=== PATIENT | male | born 1985 | race Caucasian/White ===

== ENCOUNTER 2016-10-07 21:54 | Emergency (ER) | payer BC, OTHER ==
[2016-10-07 22:07] VITALS: BP 143/80; PULSE 106; TEMP 98; BMI 37.9
[2016-10-07] MEDS ORDERED: SODIUM CHLORIDE 0.9% 1000 ML INFUS.BAG IV ONE (22:42)
[2016-10-07] MEDS ORDERED: ONDANSETRON 4 MG/2 ML VIAL IVPUSH ONE (22:42)
[2016-10-07] MEDS ORDERED: ONDANSETRON 4 MG/2 ML VIAL ONE (23:03)
[2016-10-07 23:34] LABS: BASOPHIL 0.5 % (0-2.0); EOSINOPHIL 0.5 % (0-4.5); MCH 28.7 pg (25.7-33.7); MCHC 33.9 g/dl (32.0-35.9); MEAN CELL VOLUME 84.8 fl (80-96); MEAN PLT VOLUME 7.7 fl (7.5-11.1); NEUTROPHILS 84.8 % (42.8-82.8); PLATELET COUNT 332 K/MM3 (134-434); RDW 12.7 % (11.9-15.9); WHITE BLOOD COUNT 12.9 K/mm3 (4.0-10.0)
[2016-10-08 00:12] LABS: ALBUMIN 4.7 g/dl (3.4-5.0); ANION GAP 11 (8-16); BILIRUBIN,TOTAL 0.6 mg/dL (0.2-1.0); CALCIUM 9.8 mg/dL (8.5-10.1); CO2 26 mmol/L (21-32); CREATININE 1.1 mg/dL (0.7-1.3); GLUCOSE,RANDOM 114 mg/dL (74-106); SGOT/AST 25 U/L (15-37); SGPT/ALT 40 U/L (12-78); TOT PROT 7.6 g/dl (6.4-8.2)
[2016-10-08 00:13] LABS: ALK PHOS 60 U/L (45-117)
--- NOTE | 2016-10-08 00:37 | PDOC ---
History of Present Illness - General Chief Complaint: Nausea/Vomiting Stated Complaint: VOMITING Time Seen by Provider: 10/07/16 22:20 - History of Present Illness Initial Comments: 10/09/16 03:38 CHIEF COMPLAINT: nausea, vomiting, diarrhea HISTORY OF PRESENT ILLNESS: 31 yo M with no PMH presents to ED with nausea/ vomiting/diarrhea since 4 pm today. He states that he has had at least 6 episodes of vomiting and 4 episodes of diarrhea. He states his pain is mostly to his right upper quadrant "but it might be from all the vomiting. " He denies any fever, chills, rectal bleeding. No recent travel or sick contacts. PAST MEDICAL HISTORY: Denies past medical history FAMILY HISTORY: Denies SOCIAL HISTORY: Denies tobacco, alcohol, illicit drug use. SURGICAL HISTORY: Denies ALLERGIES: No known drug allergies REVIEW OF SYSTEMS General/Constitutional: Denies fever or chills. Denies weakness, weight change. HEENT: Denies change in vision. Denies ear pain or discharge. Denies sore throat. Cardiovascular: Denies chest pain or shortness of breath. Respiratory: Denies cough, wheezing, or hemoptysis. Gastrointestinal: Nausea, vomiting, diarrhea. Denies rectal bleeding. Genitourinary: Denies dysuria, frequency, or change in urination. Musculoskeletal: Denies joint or muscle swelling or pain. Denies neck or back pain. Skin and breasts: Denies rash or easy bruising. Neurologic: Denies headache, vertigo, loss of consciousness, or loss of sensation. PHYSICAL EXAM General Appearance: Well-appearing, appropriately dressed. No apparent distress. HEENT: EOMI, PERRLA, normal ENT inspection, normal voice, TMs normal, pharynx normal. No conjunctival pallor. No photophobia, scleral icterus. Respiratory/Chest: Lungs CTAB. Cardiovascular: RRR. S1, S2. Gastrointestinal/Abdominal: RUQ tenderness. Negative McBurney's sign. Normal bowel sounds. Abdomen soft, non-distended. No tenderness or rebound tenderness. No organomegaly, pulsatile mass, guarding, hernia, hepatomegaly, splenomegaly. Lymphatic: No adenopathy, tenderness. Integumentary: Appropriate color, dry, warm. 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 Fully oriented, alert. Appropriate mood/affect. Motor strength 5/5. No appreciable EOM palsy, facial droop or sensory deficit. Past History - Past Medical History Allergies/Adverse Reactions: Allergies Allergy/AdvReac Type Severity Reaction Status Date / Time No Known Allergies Allergy Verified 10/07/16 22:04 Home Medications: Ambulatory Orders Ondansetron [Zofran Odt -] 8 mg SL TID PRN #21 od.tablet 10/08/16 Anemia: No Asthma: No Cancer: No Cardiac Disorders: No CVA: No COPD: No CHF: No Dementia: No Diabetes: No GI Disorders: No Disorders: No HTN: No Hypercholesterolemia: No Liver Disease: No Seizures: No Thyroid Disease: No - Surgical History Cardiac Surgery: No Neurologic Surgery: No - Immunization History TDAP Vaccination: Yes Immunization Up to Date: Yes - Psycho/Social/Smoking Cessation Hx Anxiety: No Suicidal Ideation: No Smoking Status: No Smoking History: Never smoked Have you smoked in the past 12 months: No Number of Cigarettes Smoked Daily: 0 Information on smoking cessation initiated: No Hx Alcohol Use: No Drug/Substance Use Hx: No Substance Use Type: None Hx Substance Use Treatment: No *Physical Exam - Vital Signs Last Vital Signs Temp Pulse Resp BP Pulse Ox 98.0 F 106 H 14 143/80 96 10/07/16 22:05 10/07/16 22:05 10/07/16 22:05 10/07/16 22:05 10/07/16 22:05 ED Treatment Course - LABORATORY CBC & Chemistry Diagram: 10/07/16 23:30 10/07/16 23:30 - ADDITIONAL ORDERS Additional order review: Laboratory Results 10/07/16 23:30 Sodium 140 Potassium 5.0 Chloride 103 Carbon Dioxide 26 Anion Gap 11 BUN 27 H D Creatinine 1.1 Creat Clearance w eGFR > 60 Random Glucose 114 H Calcium 9.8 Total Bilirubin 0.6 D AST 25 D ALT 40 D Alkaline Phosphatase 60 Total Protein 7.6 D Albumin 4.7 D Lipase 123 10/07/16 23:30 RBC 5.26 MCV 84.8 MCHC 33.9 RDW 12.7 MPV 7.7 D Neutrophils % 84.8 H Lymphocytes % 7.9 L D Monocytes % 6.3 Eosinophils % 0.5 Basophils % 0.5 - RADIOLOGY Radiology Studies Ordered: Category Date Time Status GALLBLADDER US [US] Stat Ultrasound 10/07/16 22:38 Completed - Medications Given in the ED: ED Medications Discontinued Medications Generic Name Dose Route Start Last Admin Trade Name Mandeep PRN Reason Stop Dose Admin Ondansetron HCl 8 mg 10/07/16 22:42 10/07/16 23:30 Zofran Injection IVPUSH 10/07/16 22:43 8 mg ONCE ONE Administration Sodium Chloride 1,000 ml 10/07/16 22:42 10/07/16 23:29 Normal Saline - IV 10/07/16 22:43 1,000 ml ONCE ONE Administration Medical Decision Making - Medical Decision Making 10/09/16 03:42 31 yo M with no PMH presents to ED with new onset nausea, vomiting, diarrhea with RUQ tenderness -CBC, CMP, lipase -gallbladder ultrasound r/o cholelithiasis, cholecystitis -IVF, Zofran U/S negative for gallstones. Patient reassessed; states that he is feeling much better now and the pain has subsided. His abdomen is now nontender. Will discharge home with close follow up, advised patient of signs and symptoms for return to ED. Zofran 8 mg ODT sent to pharm Advised patient to take medication as prescribed. Patient verbalized understanding and agrees to plan. *DC/Admit/Observation/Transfer Diagnosis at time of Disposition: Gastroenteritis - Discharge Dispostion Disposition: HOME Condition at time of disposition: Stable Admit: No - Prescriptions Prescriptions: Ondansetron [Zofran Odt -] 8 mg SL TID PRN #21 od.tablet PRN Reason: Nausea And/Or Vomiting - Patient Instructions Printed Discharge Instructions: DI for Viral Gastroenteritis -- Adult Additional Instructions: Please take medication as prescribed and follow up with your primary care doctor within the next 2 days. As discussed, if you experience increased pain, or the pain moves to the right lower quadrant of your stomach, you develop fever , chills, or feel unable to walk due to abdominal pain, or have any new or worsening symptoms, please return to the ED. - Post Discharge Activity Work/School Note: Back to Work
[2016-10-08] MEDS ORDERED: METOCLOPRAMIDE HCL INJECTION 10 MG/2 ML VIAL IVPUSH ONE (01:00)
[2016-10-08] MEDS ORDERED: METOCLOPRAMIDE HCL INJECTION 10 MG/2 ML VIAL ONE (01:29)
== END 2016-10-08 02:07 | disposition home or self-care (01) ==
LOC: JER 21:54
PROC: 3E033GC Introduction of Other Therapeutic Substance into Peripheral Vein, Percutaneous Approach (ICD-10-PCS; principal; 2016-10-07)
DX: K52.9 Noninfective gastroenteritis and colitis, unspecified (principal)
CPT/HCPCS: 36415; 76705-TC; 80053; 83690; 85025; 99281-25

== ENCOUNTER 2017-05-21 06:34 | Emergency (ER) | payer OTHER, BC ==
[2017-05-21 06:47] VITALS: BMI 37.1
[2017-05-21] MEDS ORDERED: IBUPROFEN 600 MG TABLET (FP) PO ONE ×2 (07:16→07:18)
--- NOTE | 2017-05-21 07:22 | PDOC ---
History of Present Illness - General History Source: Patient Exam Limitations: No Limitations - History of Present Illness Initial Comments: 05/21/17 07:32 The patient is a 31 year old male, with no significant past medical history who presents to the emergency department s/p mechanical fall about an hour ago. The patient reports falling off a garbage truck landing on his right ankle. The patient reports since the injury having right ankle pain, ranking his pain a 8/ 10 in pain intensity. The patient also report since the injury he has been unable to walk secondary to pain and has had difficulties with weight bearing activities. He denies any LE numbness and tingling. He denies any recent fevers , chills, headache or dizziness. He denies any recent nausea, vomit, diarrhea or constipation. Allergies: NKA Past surgical history: None reported. Social History: Nonsmoker. Denies EtOH use and recreational drug use. <Micky Summers - Last Filed: 05/21/17 07:32> - General History Source: Patient Exam Limitations: No Limitations - History of Present Illness Initial Comments: <Cari Harris - Last Filed: 05/21/17 08:29> - General Chief Complaint: Injury Stated Complaint: ANKLE INJURY (WORK) Past History <Micky Summers - Last Filed: 05/21/17 07:32> - Past Medical History Anemia: No Asthma: No Cancer: No Cardiac Disorders: No CVA: No COPD: No CHF: No Dementia: No Diabetes: No GI Disorders: No Disorders: No HTN: No Hypercholesterolemia: No Liver Disease: No Seizures: No Thyroid Disease: No - Surgical History Cardiac Surgery: No Neurologic Surgery: No - Immunization History TDAP Vaccination: Yes Immunization Up to Date: Yes - Psycho/Social/Smoking Cessation Hx Anxiety: No Suicidal Ideation: No Smoking Status: No Smoking History: Never smoked Have you smoked in the past 12 months: No Number of Cigarettes Smoked Daily: 0 Information on smoking cessation initiated: No Hx Alcohol Use: No Drug/Substance Use Hx: No Substance Use Type: None Hx Substance Use Treatment: No <Cari Harris - Last Filed: 05/21/17 08:29> - Past Medical History Allergies/Adverse Reactions: Allergies Allergy/AdvReac Type Severity Reaction Status Date / Time No Known Allergies Allergy Verified 10/07/16 22:04 Home Medications: Ambulatory Orders NK [No Known Home Medication] 05/21/17 Review of Systems - Review of Systems Able to Perform ROS?: Yes Comments:: 05/21/17 07:32 GENERAL/CONSTITUTIONAL: No fever or chills. No weakness. HEAD, EYES, EARS, NOSE AND THROAT: No change in vision. No ear pain or discharge. No sore throat. CARDIOVASCULAR: No chest pain or shortness of breath. RESPIRATORY: No cough, wheezing, or hemoptysis. GASTROINTESTINAL: No nausea, vomiting, diarrhea or constipation. GENITOURINARY: No dysuria, frequency, or change in urination. MUSCULOSKELETAL: +right ankle. No joint or muscle swelling or pain. No neck or back pain. SKIN: No rash NEUROLOGIC: No headache, vertigo, loss of consciousness, or change in strength/ sensation. ENDOCRINE: No increased thirst. No abnormal weight change. HEMATOLOGIC/LYMPHATIC: No anemia, easy bleeding, or history of blood clots. ALLERGIC/IMMUNOLOGIC: No hives or skin allergy. <Micky Summers - Last Filed: 05/21/17 07:32> *Physical Exam - Vital Signs Last Vital Signs Temp Pulse Resp BP Pulse Ox 98.6 F 83 18 165/91 99 05/21/17 06:45 05/21/17 06:45 05/21/17 06:45 05/21/17 06:45 05/21/17 06:45 - Physical Exam Comments: 05/21/17 07:32 GENERAL: Awake, alert, and fully oriented, in no acute distress HEAD: No signs of trauma EYES: PERRLA, EOMI, sclera anicteric, conjunctiva clear ENT: Auricles normal inspection, hearing grossly normal, nares patent, oropharynx clear without exudates. Moist mucosa NECK: Normal ROM, supple, no lymphadenopathy, JVD, or masses LUNGS: Breath sounds equal, clear to auscultation bilaterally. No wheezes, and no crackles HEART: Regular rate and rhythm, normal S1 and S2, no murmurs, rubs or gallops ABDOMEN: Soft, nontender, normoactive bowel sounds. No guarding, no rebound. No masses EXTREMITIES: Right lateral TLF ligament is tender to palpation. Mild swelling no ecchymosis. No medial or posterior malleolar tenderness. Knee is non tender with FROM. No proximal fibular tenderness. NEUROLOGICAL: A&Ox3. Neurovascularly intact. Cranial nerves II through XII grossly intact. Normal speech SKIN: Warm, Dry, normal turgor, no rashes or lesions noted. <Micky Summers - Last Filed: 05/21/17 07:32> - Vital Signs Last Vital Signs Temp Pulse Resp BP Pulse Ox 98.6 F 83 18 165/91 99 05/21/17 06:45 05/21/17 06:45 05/21/17 06:45 05/21/17 06:45 05/21/17 06:45 <Cari Harris - Last Filed: 05/21/17 08:29> ED Treatment Course - Medications Given in the ED: ED Medications Discontinued Medications Generic Name Dose Route Start Last Admin Trade Name Tamirq PRN Reason Stop Dose Admin Ibuprofen 600 mg 05/21/17 07:16 05/21/17 07:22 Motrin - PO 05/21/17 07:17 600 mg ONCE ONE Administration <Micky Summers - Last Filed: 05/21/17 07:32> - RADIOLOGY Radiology Studies Ordered: Category Date Time Status ANKLE & FOOT-RIGHT* [RAD] Stat Radiology 05/21/17 07:16 Ordered <Cari Harris - Last Filed: 05/21/17 08:29> Medical Decision Making - Medical Decision Making 05/21/17 07:21 31 yo M s/p right ankle injury , rolled foot while getting off a garbage truck. inversion injury. happened 6:30. mild swelling. ambulating with difficulty differential sprain vs. fx. pain control xray. 05/21/17 08:28 xray negative for fx. dc home. <Cari Harris - Last Filed: 05/21/17 08:29> *DC/Admit/Observation/Transfer - Attestations Scribe Attestion: 05/21/17 07:32 Documentation prepared by Micky Summers, acting as medical device assembler for Cari Harris MD. <Micky Summers - Last Filed: 05/21/17 07:32> <Cari Harris - Last Filed: 05/21/17 08:29> Diagnosis at time of Disposition: Right ankle sprain - Discharge Dispostion Condition at time of disposition: Stable - Referrals Referrals: Estuardo Wilkins [Primary Care Provider] - Dwaine Hanna MD [Staff Physician] - - Patient Instructions Printed Discharge Instructions: Ankle Sprain Additional Instructions: take ibuprofen 600 mg every 8 hours as needed for pain. wear ankle splint for comfort. use crutches as needd. ice and elevate foot to reduce swelling. only bear weight as tolerated. for pain beyond one week. follow up with orthopedics. see referral list for Dr Hanna orthopedics. - Post Discharge Activity Work/School Note: Back to Work
[2017-05-21 08:51] VITALS: BP 141/79; PULSE 69; TEMP 98.3
== END 2017-05-21 08:51 | disposition home or self-care (01) ==
LOC: JER 06:34
DX: S93.401A Sprain of unspecified ligament of right ankle, initial encounter (principal); W17.89XA Other fall from one level to another, initial encounter; Y93.H9 Activity, other involving exterior property and land maintenance, building and construction; Y92.488 Other paved roadways as the place of occurrence of the external cause; Y99.0 Civilian activity done for income or pay
CPT/HCPCS: 73610-TC-RT; 73630-TC-RT; 99282-25

== ENCOUNTER 2024-08-19 14:44 | Emergency (ER) | payer OTHER, BC ==
[2024-08-19 15:55] VITALS: BP 142/89; PULSE 73; RESP 18; TEMP 97.6; BMI 32.1
[2024-08-19] MEDS ORDERED: METOCLOPRAMIDE HCL INJECTION 10 MG/2 ML VIAL ONE (16:06)
[2024-08-19] MEDS ORDERED: MECLIZINE HCL 12.5 MG TABLET ONE (16:06)
[2024-08-19] MEDS: SODIUM CHLORIDE 0.9% 500 ML INFUS.BAG IV ONE (16:31)
[2024-08-19] MEDS: METOCLOPRAMIDE HCL INJECTION 10 MG/2 ML VIAL IVPUSH ONE (16:31)
[2024-08-19] MEDS: MECLIZINE HCL 12.5 MG TABLET PO ONE (16:31)
[2024-08-19 16:46] LABS: BASO % 0.3 % (0-2.0); EOS % 1.8 % (0-4.5); HEMOGLOBIN 15.9 GM/dL (11.7-16.9); MCHC 34.5 g/dl (32.0-35.9); MEAN CELL VOLUME 86.7 fl (80-96); MEAN PLT VOLUME 7.7 fl (7.5-11.1); MONO % 9.8 % (3.8-10.2); NEUT % 52.1 % (42.8-82.8); PLATELET COUNT 344 10^3/uL (134-434); RDW 13.3 % (11.9-15.9); WHITE BLOOD COUNT 8.4 K/mm3 (4.0-10.0)
[2024-08-19 17:40] LABS: ALBUMIN 4.5 g/dl (3.4-5.0); CALCIUM 10.2 mg/dL (8.5-10.1)
[2024-08-19 17:41] LABS: BLOOD UREA NITROGEN 14.2 mg/dL (7-18)
[2024-08-19 17:44] LABS: CREATININE 1.1 mg/dL (0.55-1.3)
[2024-08-19 17:45] LABS: BILIRUBIN,TOTAL 0.3 mg/dL (0.2-1); TOT PROT 7.8 g/dl (6.4-8.2)
== END 2024-08-19 20:07 | disposition home or self-care (01) ==
LOC: JER 14:44
PROC: 3E033GC Introduction of Other Therapeutic Substance into Peripheral Vein, Percutaneous Approach (ICD-10-PCS; principal; 2024-08-19)
DX: S16.1XXA Strain of muscle, fascia and tendon at neck level, initial encounter (principal); R20.2 Paresthesia of skin; R42 Dizziness and giddiness; R51.9 Headache, unspecified; V43.02XA Car driver injured in collision with other type car in nontraffic accident, initial encounter
CPT/HCPCS: 36415; 70450-TC; 70496-TC; 70498-TC; 80053; 85025; 99284-25